=== PATIENT | female | born 1965 | race Two or more races ===

== ENCOUNTER 2016-08-10 12:43 | Inpatient (IN) | payer MEDICAID ==
[~2016-08-10] VITALS: Ht 154.9 cm; Wt 123.9 kg
[2016-08-10] MEDS ORDERED: SODIUM CHLORIDE 0.9% 1,000 ML IV ONE (13:30)
[2016-08-10] MEDS ORDERED: VANCOMYCIN 1GM/250ML D5W 250 ML IV ONE (13:30)
[2016-08-10] MEDS ORDERED: KETOROLAC TROMETH 30 MG/ML 1ML VIAL IV ONE (13:30)
[2016-08-10] MEDS ORDERED: CLINDAMYCIN 600MG IV 50 ML IV ONE (13:30)
[2016-08-10] MEDS ORDERED: CLINDAMYCIN 600 MG/4 ML VL IM ONE (13:30)
[2016-08-10 14:46] LABS: Basophils # (auto) 0.1 uL; Basophils % (auto) 1.4 % (0.0-2.0); Eosinophils # (auto) 0 uL; Eosinophils % (auto) 0.1 % (0.0-7.0); Hematocrit 41.6 % (36.0-46.0); Hemoglobin 13.8 g/dL (12.2-16.2); Lymphocytes # (auto) 2.4 uL; Lymphocytes % (auto) 43.8 % (10.0-50.0); Mean Corpuscular Hemoglobin 32.2 pg (28.0-32.0); Mean Corpuscular Hgb Conc. 33.2 g/dL (32.0-36.0); Mean Corpuscular Volume 96.9 fL (80.0-100.0); Mean Platelet Volume 10.1 fL (7.4-10.4); Monocytes # (auto) 0.5 uL; Monocytes % (auto) 8.4 % (0.0-12.0); Neutrophils # (auto) 2.5 uL; Neutrophils % (auto) 46.3 % (37.0-80.0); Platelet Count (auto) 255 10^3/uL (140-450); White Blood Cell 5.4 10^3/uL (4.4-10.8)
[2016-08-10 14:56] LABS: BUN/Creatinine Ratio 18.4; Bilirubin, Total 0.3 mg/dL (0.2-1.0); Calcium 9.2 mg/dL (8.5-10.1); Potassium 3.6 mmol/L (3.5-5.1); Total Protein 7.7 g/dL (6.4-8.2)
[2016-08-10] MEDS ORDERED: MORPHINE SULF INJ 2 MG/ML SYRINGE 1ML IV PRN (15:45)
[2016-08-10] MEDS ORDERED: ONDANSETRON HCL 4 MG/2 ML VIAL IV PRN (15:45)
[2016-08-10] MEDS ORDERED: DEXTROSE (50%) 50ML SYRG IV PRN (15:45)
[2016-08-10] MEDS ORDERED: cefTRIAXone 1GM/50ML D5W 50 ML IV ONE (16:00)
[2016-08-10] MEDS: ACCU-CHEK COMFORT CURVE STRIP VI SCH ×2 (16:41→22:10)
[2016-08-10] MEDS: InsuLIN REG 1unit/0.01ml Soln (100units/ml) SC SCH ×2 (16:41→22:09)
[2016-08-10] MEDS ORDERED: POTASSIUM CHL 20 Meq TABLET PO ONE (16:45)
[2016-08-10] MEDS ORDERED: FUROSEMIDE 40 MG TAB PO ONE (16:45)
[2016-08-10] MEDS ORDERED: LOSARTAN POTASSIUM 50 MG TAB PO ONE (16:45)
[2016-08-10] MEDS ORDERED: LEVOTHYROXINE SODIUM 50 MCG TAB PO ONE (16:45)
[2016-08-10] MEDS: ALBUTEROL SULF 2.5 MG/0.5ML(0.5%) NEB SOLN NEB PRN (18:37)
[2016-08-10] MEDS: BUDESONIDE (INHALATION) 0.5 MG/2 ML NEB NEB SCH (18:38)
[2016-08-10 19:40] LABS: Urine Bilirubin Negative (Negative); Urine Blood Negative /uL (Negative); Urine Color Yellow (Yellow); Urine Glucose Normal (Normal); Urine Ketone Negative (Negative); Urine Mucus FEW (None Seen); Urine Nitrite Negative (Negative); Urine RBC 1 /hpf (0 - 4); Urine Squamous Epithelial Cell FEW /hpf (<5); Urine Urobilinogen Normal (Negative)
[2016-08-10 20:00] VITALS: BP 153/89
[2016-08-10] MEDS ORDERED: LIDO1PAD55 TOP (20:27)
[2016-08-10] MEDS ORDERED: ASP81EC PO (20:27)
[2016-08-10] MEDS ORDERED: ALBU0.084 INH (20:27)
[2016-08-10] MEDS ORDERED: HYDR50TA69 PO (20:27)
[2016-08-10] MEDS ORDERED: OME20T PO (20:27)
[2016-08-10] MEDS ORDERED: FURO40TA4 PO (20:27)
[2016-08-10] MEDS ORDERED: LEVO50TA7 PO (20:27)
[2016-08-10] MEDS ORDERED: BECL80AE9 IN (20:27)
[2016-08-10] MEDS ORDERED: CYCL1TAB18 PO (20:27)
[2016-08-10] MEDS ORDERED: LOSA50TA6 PO (20:27)
[2016-08-10] MEDS ORDERED: GABA800T97 PO (20:27)
[2016-08-10] MEDS ORDERED: ALUMCHW2 PO (20:27)
[2016-08-10] MEDS ORDERED: CHOL200035 PO (20:27)
[2016-08-10] MEDS ORDERED: HCTZ25T PO (20:27)
[2016-08-10] MEDS ORDERED: MONT10TA34 PO (20:27)
[2016-08-10] MEDS ORDERED: TRAM50TA2 PO (20:27)
[2016-08-10] MEDS ORDERED: GLIP-115 PO (20:27)
[2016-08-10] MEDS ORDERED: ALBU18 INH (20:27)
[2016-08-10] MEDS ORDERED: DICL1GEL35 TOP (20:27)
[2016-08-10 20:28] VITALS: BP 145/86
[2016-08-10] MEDS ORDERED: POTA10TA51 PO (20:28)
[2016-08-10] MEDS ORDERED: LORA-154 PO (20:29)
[2016-08-10] MEDS ORDERED: SIMV-13 PO (20:29)
[2016-08-10] MEDS ORDERED: POTA8TAB15 PO (20:29)
[2016-08-10] MEDS: CLINDAMYCIN 600MG IV 50 ML IV SCH (21:58)
[2016-08-10] MEDS: HYDROcodone-ACET 5/325MG TAB PO PRN (22:10)
[2016-08-10 22:55] VITALS: BP 153/89
[2016-08-11] VITALS (7 sets, daily range): BP systolic 107–143; BP diastolic 62–77
[2016-08-11] MEDS: ACCU-CHEK COMFORT CURVE STRIP VI SCH ×4 (05:54→22:04)
[2016-08-11] MEDS: InsuLIN REG 1unit/0.01ml Soln (100units/ml) SC SCH ×4 (05:55→22:00)
[2016-08-11] MEDS: HYDROcodone-ACET 5/325MG TAB PO PRN (06:02)
[2016-08-11] MEDS: LEVOTHYROXINE SODIUM 50 MCG TAB PO SCH (06:02)
[2016-08-11] MEDS: CLINDAMYCIN 600MG IV 50 ML IV SCH ×3 (06:02→22:04)
[2016-08-11 06:52] LABS: Basophils # (auto) 0 uL; Basophils % (auto) 0.4 % (0.0-2.0); Eosinophils # (auto) 0 uL; Hematocrit 37.4 % (36.0-46.0); Hemoglobin 12.6 g/dL (12.2-16.2); Lymphocytes # (auto) 1.1 uL; Lymphocytes % (auto) 17.9 % (10.0-50.0); Mean Corpuscular Hemoglobin 32.5 pg (28.0-32.0); Mean Corpuscular Hgb Conc. 33.7 g/dL (32.0-36.0); Mean Corpuscular Volume 96.4 fL (80.0-100.0); Mean Platelet Volume 9.9 fL (7.4-10.4); Monocytes # (auto) 0.4 uL; Monocytes % (auto) 6.2 % (0.0-12.0); Neutrophils # (auto) 4.8 uL; Neutrophils % (auto) 75.5 % (37.0-80.0); Platelet Count (auto) 219 10^3/uL (140-450); Red Cell Distribution Width 13.8 % (11.6-16.0); White Blood Cell 6.3 10^3/uL (4.4-10.8)
[2016-08-11 06:56] LABS: Potassium 4.5 mmol/L (3.5-5.1)
[2016-08-11 07:01] LABS: BUN/Creatinine Ratio 23.4; Calcium 8.3 mg/dL (8.5-10.1)
[2016-08-11] MEDS: cefTRIAXone 1GM/50ML D5W 50 ML IV SCH (09:02)
[2016-08-11] MEDS: BUDESONIDE (INHALATION) 0.5 MG/2 ML NEB NEB SCH ×2 (10:03→18:59)
[2016-08-11] MEDS: FUROSEMIDE 40 MG TAB PO SCH (11:26)
[2016-08-11] MEDS: FLORASTOR (S. BOULARDII) 250 MG CAP PO SCH (11:26)
[2016-08-11] MEDS: POTASSIUM CHL 20 Meq TABLET PO SCH (11:26)
[2016-08-11] MEDS: LOSARTAN POTASSIUM 50 MG TAB PO SCH (11:27)
[2016-08-11] MEDS: traMADol HCL 50 MG TAB PO PRN (18:19)
[2016-08-12 05:00] VITALS: BP 138/72
[2016-08-12] MEDS: ACCU-CHEK COMFORT CURVE STRIP VI SCH ×4 (06:16→22:00)
[2016-08-12] MEDS: CLINDAMYCIN 600MG IV 50 ML IV SCH ×3 (06:16→22:52)
[2016-08-12] MEDS: InsuLIN REG 1unit/0.01ml Soln (100units/ml) SC SCH ×4 (06:16→22:00)
[2016-08-12] MEDS: LEVOTHYROXINE SODIUM 50 MCG TAB PO SCH (06:45)
[2016-08-12 09:00] VITALS: BP 104/64
[2016-08-12] MEDS: POTASSIUM CHL 20 Meq TABLET PO SCH (09:36)
[2016-08-12] MEDS: FLORASTOR (S. BOULARDII) 250 MG CAP PO SCH (09:36)
[2016-08-12] MEDS: cefTRIAXone 1GM/50ML D5W 50 ML IV SCH (09:36)
[2016-08-12] MEDS: LOSARTAN POTASSIUM 50 MG TAB PO SCH (09:39)
[2016-08-12] MEDS: FUROSEMIDE 40 MG TAB PO SCH (09:39)
[2016-08-12] MEDS: BUDESONIDE (INHALATION) 0.5 MG/2 ML NEB NEB SCH ×2 (10:39→18:17)
[2016-08-12] MEDS: traMADol HCL 50 MG TAB PO PRN (12:11)
[2016-08-12 13:00] VITALS: BP 126/68
[2016-08-12 17:00] VITALS: BP 151/95
[2016-08-12] MEDS ORDERED: GABAPENTIN 400 MG CAP PO SCH (18:00)
[2016-08-12] MEDS: ALBUTEROL SULF 2.5 MG/0.5ML(0.5%) NEB SOLN NEB PRN (18:17)
[2016-08-12 22:00] VITALS: BP 144/92
[2016-08-13 05:00] VITALS: BP 158/90
[2016-08-13] MEDS: LEVOTHYROXINE SODIUM 50 MCG TAB PO SCH (05:29)
[2016-08-13] MEDS: InsuLIN REG 1unit/0.01ml Soln (100units/ml) SC SCH ×2 (05:29→11:30)
[2016-08-13] MEDS: ACCU-CHEK COMFORT CURVE STRIP VI SCH ×2 (05:30→12:05)
[2016-08-13] MEDS: CLINDAMYCIN 600MG IV 50 ML IV SCH (05:30)
[2016-08-13] MEDS: BUDESONIDE (INHALATION) 0.5 MG/2 ML NEB NEB SCH (05:59)
[2016-08-13 09:00] VITALS: BP 117/73
[2016-08-13] MEDS: FLORASTOR (S. BOULARDII) 250 MG CAP PO SCH (09:25)
[2016-08-13] MEDS: cefTRIAXone 1GM/50ML D5W 50 ML IV SCH (09:25)
[2016-08-13] MEDS: LOSARTAN POTASSIUM 50 MG TAB PO SCH (09:26)
[2016-08-13] MEDS: POTASSIUM CHL 20 Meq TABLET PO SCH (09:26)
[2016-08-13] MEDS: FUROSEMIDE 40 MG TAB PO SCH (09:27)
[2016-08-13] MEDS ORDERED: ASCORBIC ACID 500 MG TAB PO SCH (10:00)
[2016-08-13] MEDS ORDERED: MULTIPLE VITAMINS W/ MINERALS TAB PO SCH (10:00)
[2016-08-13 13:00] VITALS: BP 145/84
== END 2016-08-13 12:45 | disposition still patient (30) | DRG 383 ==
LOC: ER 12:43 → OVERFLOW 12:44 → CENTRAL 19:31
PROVIDERS: ADMIT Internal Medicine; ATTEND Internal Medicine
DX: L03.116 Cellulitis of left lower limb (principal); L97.929 Non-pressure chronic ulcer of unspecified part of left lower leg with unspecified severity; I10 Essential (primary) hypertension; E66.01 Morbid (severe) obesity due to excess calories; E11.9 Type 2 diabetes mellitus without complications; E03.9 Hypothyroidism, unspecified; E78.5 Hyperlipidemia, unspecified; J45.909 Unspecified asthma, uncomplicated; M19.90 Unspecified osteoarthritis, unspecified site; E78.00 Pure hypercholesterolemia, unspecified; Z68.43 Body mass index [BMI] 50.0-59.9, adult
CPT/HCPCS: 36415; 73590; 80048; 80053; 81001; 82962; 83036; 84443; 85025; 87040; 87077; 87186; 87205; 87493; 94640; 96365; 96367; 96368; 96372; 96375; J0696; J1815; J1885; J3490

== ENCOUNTER 2016-08-31 08:08 | Emergency (ER) | payer MEDICAID ==
[~2016-08-31] VITALS: Ht 154.9 cm; Wt 98.4 kg
[~2016-08-31 08:08] MED LIST: ALBU0.084 INH; ALBU18 INH; ALUMCHW2 PO; ASP81EC PO; BECL80AE9 IN; CHOL200035 PO; CYCL1TAB18 PO; DICL1GEL35 TOP; FURO40TA4 PO; GABA800T97 PO; GLIP-115 PO; HCTZ25T PO; HYDR50TA69 PO; LEVO50TA7 PO; LIDO1PAD55 TOP; LORA-154 PO; LOSA50TA6 PO; MONT10TA34 PO; OME20T PO; POTA8TAB15 PO; SIMV-13 PO; TRAM50TA2 PO
[2016-08-31 08:40] VITALS: BP 131/86
[2016-08-31] MEDS ORDERED: diphenhdrAMINE HCL 50 MG/1 ML VL IM ONE (09:00)
[2016-08-31] MEDS ORDERED: methylPREDNISolone SOD SUCC 125 MG/2 ML VL IM ONE (09:00)
== END 2016-08-31 09:32 | disposition home or self-care (01) ==
LOC: ER 08:10
DX: L50.9 Urticaria, unspecified (principal); T36.1X5A Adverse effect of cephalosporins and other beta-lactam antibiotics, initial encounter; E11.9 Type 2 diabetes mellitus without complications; I10 Essential (primary) hypertension; Y92.89 Other specified places as the place of occurrence of the external cause
CPT/HCPCS: 96372; 99284; J1200; J2930

== ENCOUNTER 2019-08-28 14:11 | Inpatient (IN) | payer MEDICAID ==
[~2019-08-28] VITALS: Ht 160 cm; Wt 140.4 kg
[~2019-08-28 14:11] MED LIST changes: -ASP81EC PO; +ASPI-394 PO; +CYCL10TA6 PO; -CYCL1TAB18 PO; -DICL1GEL35 TOP; +DICL1GEL50 TOP; -GLIP-115 PO; +GLIP5TAB12 PO; +LOSA-69 PO; -LOSA50TA6 PO
[2019-08-28] MEDS ORDERED: SODIUM CHLORIDE 0.9% 1,000 ML IV ONE ×2 (14:24)
[2019-08-28] MEDS ORDERED: PIPERACILLIN-TAZOB 3.375GM 100 ML IV ONE (14:30)
[2019-08-28 16:02] LABS: Albumin 3.9 g/dL (3.4-5.0); Anion Gap 5 (5-15); Blood Urea Nitrogen 18 mg/dL (7-18); Calcium 8.7 mg/dL (8.5-10.1); Carbon Dioxide 28 mmol/L (21-32); Chloride 105 mmol/L (98-107); Glucose 110 mg/dL (74-106); Sodium 138 mmol/L (136-145)
[2019-08-28 16:04] LABS: Basophils # (auto) 0.1 10 ^3/uL (0-0.2); Basophils % (auto) 1.5 % (0.0-2.0); Eosinophils # (auto) 0.1 10 ^3/uL (0-0.8); Eosinophils % (auto) 3.1 % (0.0-7.0); Hematocrit 38.4 % (36.0-46.0); Hemoglobin 12.6 g/dL (12.2-16.2); Lymphocytes # (auto) 1.5 10 ^3/uL (0.4-5.4); Lymphocytes % (auto) 31.8 % (10.0-50.0); Mean Corpuscular Hemoglobin 31.4 pg (28.0-32.0); Mean Corpuscular Hgb Conc. 32.8 g/dL (32.0-36.0); Monocytes # (auto) 0.4 10 ^3/uL (0-1.3); Monocytes % (auto) 9.1 % (0.0-12.0); Neutrophils # (auto) 2.6 10 ^3/uL (1.6-8.6); Neutrophils % (auto) 54.5 % (37.0-80.0); Platelet Count (auto) 202 10^3/uL (140-450); Red Blood Cells 4.01 10^6/uL (4.0-5.20); Red Cell Distribution Width 13.4 % (11.8-14.3); White Blood Cell 4.8 10^3/uL (4.4-10.8)
[2019-08-28 16:06] LABS: INR 1.01 (0.9-1.15); Partial Thromboplastin Time 27.6 sec (23.64-32.05)
[2019-08-28 16:09] LABS: Alanine Aminotransferase 19 U/L (13-56); Alkaline Phosphatase 107 U/L (45-117); Aspartate Aminotransferase 13 U/L (15-37); BUN/Creatinine Ratio 27.3; Bilirubin, Total 0.4 mg/dL (0.2-1.0); GFR African American 119 mL/min; GFR Non-African American 98 mL/min; Total Protein 7.1 g/dL (6.4-8.2)
[2019-08-28] MEDS ORDERED: SODIUM CHLORIDE 0.9% 1,000 ML IV SCH (18:38)
[2019-08-28] MEDS ORDERED: ALUM & MAG HYDROX-SIMETH LIQ(MAALOX) 30 ML PO PRN (18:45)
[2019-08-28] MEDS ORDERED: NITROGLYCERIN 0.4 MG SL TAB SL PRN (18:45)
[2019-08-28] MEDS ORDERED: MORPHINE SULF INJ 2 MG/ML SYRINGE 1ML IV PRN ×2 (18:45)
[2019-08-28] MEDS ORDERED: HYDROcodone-ACET 5/325MG TAB PO PRN (18:45)
[2019-08-28] MEDS ORDERED: VANCOMYCIN PER PHARMACY 0 MG IV SCH (18:45)
[2019-08-28] MEDS ORDERED: ONDANSETRON HCL 4 MG/2 ML VIAL IV PRN (18:45)
[2019-08-28] MEDS ORDERED: DOCUSATE SOD 100 MG CAP PO PRN (18:45)
--- NOTE | 2019-08-28 19:55 | NUR ---
Telemetry admit from ER CHHAYA ROSENBERG admitted to Telemetry unit. Patient oriented to Sandy Wilkerson, primary RN, unit, room, bed, and unit policies regarding patient care and visiting hours. Patient now on continuous telemetry monitoring, tele box # 50 and telemetry reading on arrival to unit is Sinus rhythm 74. Patient placed on bedside oxygen, weighed by bedscale and encouraged to call if they need something. All questions and concerns addressed, patient verbalized understanding. Note:
[2019-08-28 20:09] LABS: Cholesterol 128 mg/dL (< 200)
[2019-08-28 20:16] LABS: HDL Cholesterol 37 mg/dL (40-59); LDL Cholesterol 78 mg/dL (< 100); Triglycerides 136 mg/dL (< 150)
[2019-08-28 20:40] VITALS: BP 146/85
[2019-08-28] MEDS ORDERED: VANCOMYCIN 1GM/250ML 250 ML IV SCH (21:00)
[2019-08-28] MEDS: LORazepam 0.5 MG TAB PO PRN (21:57)
[2019-08-28 22:00] VITALS: BP 118/71
[2019-08-28] MEDS ORDERED: POTASSIUM CHL 20MEQ/100ML 100 ML IV ONE (22:45)
[2019-08-28] MEDS ORDERED: SOD CHL 0.9%/ KCL 40MEQ 1,000 ML IV SCH (22:45)
[2019-08-28] MEDS ORDERED: FUROSEMIDE 20 MG/2 ML VIAL IV ONE (22:45)
[2019-08-28] MEDS ORDERED: HCTZ 25 MG TAB PO ONE (23:00)
[2019-08-28] MEDS ORDERED: hydrALAZINE HCL 20 MG/ML VL IV PRN (23:00)
[2019-08-28] MEDS ORDERED: DEXTROSE (50%) 50ML SYRG IV PRN (23:00)
[2019-08-28 23:30] LABS: Urine Amorphous Crystal FEW /hpf (None Seen); Urine Bacteria FEW /hpf (None Seen); Urine Blood Negative /uL (Negative); Urine Specific Gravity 1.023 (1.001-1.035); Urine WBC 3 /hpf (0 - 5)
[2019-08-28] MEDS ORDERED: LOSARTAN POTASSIUM 25 MG TAB PO ONE (23:30)
[2019-08-28 23:36] LABS: Alcohol, Urine < 3.0 mg/dL (0-10); Amphetamine Screen, Urine NEGATIVE (NEGATIVE); Barbiturate Scree,Urine NEGATIVE (NEGATIVE); Benzodiazephine Screen, Urine NEGATIVE (NEGATIVE); Cannabinoid Screen, Urine NEGATIVE (NEGATIVE); Cocaine Screen, Urine NEGATIVE (NEGATIVE); Opiate Scree,Urine NEGATIVE (NEGATIVE); Phencyclidine Screen, Urine NEGATIVE (NEGATIVE)
[2019-08-29] VITALS (7 sets, daily range): BP systolic 123–146; BP diastolic 63–89
[2019-08-29] MEDS: PIPERACILLIN-TAZOB 3.375GM 100 ML IV SCH ×3 (00:11→11:30)
[2019-08-29] MEDS: IPRATROPIUM BROM 0.5 MG/2.5ML INH SOL NEB SCH ×6 (01:55→22:27)
[2019-08-29] MEDS: ALBUTEROL SULF 2.5 MG/0.5ML(0.5%) NEB SOLN NEB SCH ×6 (01:55→22:27)
[2019-08-29] MEDS ORDERED: FUROSEMIDE 20 MG/2 ML VIAL IV SCH (06:00)
[2019-08-29 06:04] LABS: Basophils # (auto) 0.1 10 ^3/uL (0-0.2); Basophils % (auto) 1.4 % (0.0-2.0); Eosinophils # (auto) 0.1 10 ^3/uL (0-0.8); Eosinophils % (auto) 2.5 % (0.0-7.0); Hematocrit 38.2 % (36.0-46.0); Hemoglobin 13.1 g/dL (12.2-16.2); Lymphocytes # (auto) 1.1 10 ^3/uL (0.4-5.4); Lymphocytes % (auto) 26.5 % (10.0-50.0); Mean Corpuscular Hemoglobin 32.5 pg (28.0-32.0); Mean Corpuscular Hgb Conc. 34.3 g/dL (32.0-36.0); Monocytes # (auto) 0.4 10 ^3/uL (0-1.3); Monocytes % (auto) 10.9 % (0.0-12.0); Neutrophils # (auto) 2.4 10 ^3/uL (1.6-8.6); Neutrophils % (auto) 58.7 % (37.0-80.0); Platelet Count (auto) 192 10^3/uL (140-450); Red Blood Cells 4.02 10^6/uL (4.0-5.20); Red Cell Distribution Width 13.3 % (11.8-14.3); White Blood Cell 4.1 10^3/uL (4.4-10.8)
[2019-08-29 06:24] LABS: INR 1.01 (0.9-1.15); Partial Thromboplastin Time 26.4 sec (23.64-32.05)
[2019-08-29 06:29] LABS: Potassium 3.1 mmol/L (3.5-5.1)
[2019-08-29] MEDS: LEVOTHYROXINE SODIUM 50 MCG TAB PO SCH (06:33)
[2019-08-29] MEDS: ACCU-CHEK COMFORT CURVE STRIP VI SCH ×4 (06:33→21:57)
[2019-08-29] MEDS: InsuLIN REG 1unit/0.01ml Soln (100units/ml) SC SCH ×3 (06:34→17:17)
[2019-08-29 06:42] LABS: Albumin 3.6 g/dL (3.4-5.0); BUN/Creatinine Ratio 19.4; Bilirubin, Total 0.5 mg/dL (0.2-1.0); Calcium 8.8 mg/dL (8.5-10.1); Magnesium 1.9 mg/dL (1.6-2.6); Phosphorus 4.3 mg/dL (2.5-4.90); Total Protein 6.7 g/dL (6.4-8.2)
--- NOTE | 2019-08-29 07:30 | NUR ---
Opening Shift Note Assumed care of patient, awake and alert. No S/S of distress/SOB or pain. Bed in lowest and locked position with side rails up x2 and call light in reach. Instructed on POC and to call for assist PRN, will continue to monitor for changes Q1hr and PRN.
[2019-08-29] MEDS ORDERED: methylPREDNISolone SOD SUCC 40 MG/ML VL IV SCH (10:00)
[2019-08-29] MEDS ORDERED: FAMOTIDINE (10MG/ML) 2ML VL IV SCH (10:00)
--- NOTE | 2019-08-29 11:13 | NUR ---
WOUND CARE NOTE: Wound care in to see patient per wound care request regarding "left lower extremity multi open wounds and swelling" that are noted present on admission. Bedside nurse took photograph of patient's skin issue upon admission for reference. Patient is 54 years old female with admitting diagnosis of Bilateral lower extremity Cellulitis. Patient is resting in bed in Rm. 278B. She's awake,alert and oriented. Patient is ambulatory, self turning and repositioning. Her Sourav score is 21. Patient is in no stated pain at this time. Noted patient's BLE has edema and erythema. Dry skin and intact scars noted to her Rt lower leg. There's tiny, dry, scabbed wound (0.8x0.8cm) noted to her Rt distal limon. Patient's L limon has multi ulceration measuring from proximal to distal : 1x0.7cm, 0.6x0.6cm and 1.5x1.8cm. Wounds are red/pale pink with red wilfredo wound, no drainage/odor noted. Patient reported that she has had the LLE wounds for two weeks. Patient's wound care education provided,verbalized understanding. Cleansed patient's LLE wounds with mild soap and water,patted dry, applied Thera honey gel to multi wounds and covered with abd pad, secured with stockinette. Patient requested dressing to her dry scabbed wound to Rt distal limon. Cleansed and covered with dry dressing. Patient tolerated well. Patient's toe nails noted thick, long and yellow. Patient educated on the needs to see mounted police officer for her toe nails. RECOMMENDATION: Nursing to continue with EOD/PRN dressing change to LLE wounds per MD order, elevate edematous extremities on pillows, redistribute pressure points with pillows,continue monitoring by wound care while patient is hospitalized. Addendum: 08/29/19 at 1335 by Selena Gray RN Amended: Links added.
[2019-08-29] MEDS: CITALOPRAM HYDROBR 20 MG TAB PO SCH (11:32)
[2019-08-29] MEDS: ASPirin 81 mg TAB PO SCH (11:32)
[2019-08-29] MEDS: GABAPENTIN 300 MG CAP PO SCH ×2 (11:34→21:56)
[2019-08-29] MEDS: POTASSIUM CHL 20 Meq TABLET PO SCH (11:34)
[2019-08-29] MEDS: CHOLECALCIFEROL (VITD3) 1,000UNIT=25mCg TAB PO SCH (11:34)
[2019-08-29] MEDS: ENOXAPARIN SOD 40 MG/0.4 ML SYRINGE SC SCH (11:35)
[2019-08-29] MEDS ORDERED: POTASSIUM CHL 20 Meq TABLET PO ONE (12:30)
[2019-08-29] MEDS: LOSARTAN POTASSIUM 50 MG TAB PO SCH (12:42)
[2019-08-29] MEDS: HCTZ 25 MG TAB PO SCH (12:43)
--- NOTE | 2019-08-29 13:38 | NUR ---
COVID-19 SWAB WALKED TO LAB BY PRIMARY RN.
[2019-08-29] MEDS: cefTRIAXone 1GM/50ML D5W 50 ML IV SCH (13:57)
[2019-08-29] MEDS ORDERED: CHOL200035 PO ×2 (15:50→15:51)
[2019-08-29] MEDS ORDERED: FURO20TA3 PO (15:50)
[2019-08-29] MEDS ORDERED: ATOR40TA52 PO (15:50)
[2019-08-29] MEDS ORDERED: LEVO50TA7 PO (15:50)
[2019-08-29] MEDS ORDERED: POTA8TAB2 PO (15:50)
--- NOTE | 2019-08-29 19:35 | NUR ---
Opening Shift Note Assumed care of patient, awake and alert. No S/S of distress/SOB or pain. Instructed on POC and to call for assist PRN, will continue to monitor for changes Q1hr and PRN.
[2019-08-29] MEDS: LORazepam 0.5 MG TAB PO PRN (21:57)
[2019-08-29] MEDS ORDERED: ATORVASTATIN 20 MG TAB PO SCH (22:00)
[2019-08-29] MEDS ORDERED: InsuLIN REG 1unit/0.01ml Soln (100units/ml) SC SCH (22:00)
[2019-08-29] MEDS ORDERED: MONTELUKAST SODIUM 10 MG TAB PO SCH (22:00)
[2019-08-29] MEDS: CLINDAMYCIN 600MG IV 50 ML IV SCH (22:50)
[2019-08-30] MEDS: IPRATROPIUM BROM 0.5 MG/2.5ML INH SOL NEB SCH ×4 (02:33→14:36)
[2019-08-30] MEDS: ALBUTEROL SULF 2.5 MG/0.5ML(0.5%) NEB SOLN NEB SCH ×4 (02:33→14:36)
--- NOTE | 2019-08-30 02:33 | NUR ---
Respiratory note: SCHEDULED MED NEB TX NOT GIVEN. PT WAS ASLEEP, NO RESP DISTRESS NOTED. PT DID NOT WANT TX AT THIS TIME.
[2019-08-30 06:00] VITALS: BP 138/96
[2019-08-30] MEDS: CLINDAMYCIN 600MG IV 50 ML IV SCH ×2 (06:51→14:00)
[2019-08-30] MEDS: LEVOTHYROXINE SODIUM 50 MCG TAB PO SCH (06:52)
[2019-08-30] MEDS: ACCU-CHEK COMFORT CURVE STRIP VI SCH ×2 (06:52→11:30)
[2019-08-30] MEDS: InsuLIN REG 1unit/0.01ml Soln (100units/ml) SC SCH ×2 (07:05→11:30)
[2019-08-30 07:25] LABS: Potassium 3.7 mmol/L (3.5-5.1)
--- NOTE | 2019-08-30 07:30 | NUR ---
Opening Shift Note Assuming care of patient at this time. Patient is awake and alert. Patient denies pain. Patient shows no signs or symptoms of distress or shortness of breath. Bed is locked and lowered with side rails up x2. Instructed patient on the plan of care for today and to call for assistance as needed. Call light within reach. Will continue to round hourly and as needed.
[2019-08-30 07:33] LABS: BUN/Creatinine Ratio 15.7; Calcium 9.6 mg/dL (8.5-10.1)
[2019-08-30 09:00] VITALS: BP 130/68
[2019-08-30] MEDS: ASPirin 81 mg TAB PO SCH (10:11)
[2019-08-30] MEDS: GABAPENTIN 300 MG CAP PO SCH (10:11)
[2019-08-30] MEDS: CITALOPRAM HYDROBR 20 MG TAB PO SCH (10:11)
[2019-08-30] MEDS: HCTZ 25 MG TAB PO SCH (10:12)
[2019-08-30] MEDS: CHOLECALCIFEROL (VITD3) 1,000UNIT=25mCg TAB PO SCH (10:12)
[2019-08-30] MEDS: POTASSIUM CHL 20 Meq TABLET PO SCH (10:13)
[2019-08-30] MEDS: LOSARTAN POTASSIUM 50 MG TAB PO SCH (10:13)
[2019-08-30] MEDS: cefTRIAXone 1GM/50ML D5W 50 ML IV SCH (10:13)
[2019-08-30] MEDS ORDERED: LEV50T PO (10:14)
[2019-08-30] MEDS: ENOXAPARIN SOD 40 MG/0.4 ML SYRINGE SC SCH (10:14)
[2019-08-30] MEDS ORDERED: CLIN300C8 PO (10:14)
[2019-08-30] MEDS ORDERED: IPR002IS NEB (10:14)
[2019-08-30] MEDS ORDERED: POTA-220 PO (10:15)
[2019-08-30 12:22] VITALS: BP 130/68
--- NOTE | 2019-08-30 12:30 | NUR ---
Wound Photos/Care Wound care done and photos taken at this time. Gave patient supplies to do wound care at home per MD orders. Patient given abdominal pads, honey, and stockinettes in order to perform wound care at home.
[2019-08-30 13:00] VITALS: BP 138/94
--- NOTE | 2019-08-30 14:30 | NUR ---
Discharge Discharge instructions given as ordered. Encourage to follow up with PMD as instructed. All questions and concerns addressed. Patient verbalized understanding. Medication reconciliation form completed and copy given to patient. IV removed with catheter intact, pressure dressing applied. Patient taken to vehicle via wheelchair with all personal belongings, accompanied by staff and family member. No distress noted at time of departure.
== END 2019-08-30 14:30 | disposition home or self-care (01) | DRG 383 ==
LOC: ER 14:11 → EDUNIT# 14:11 → TELE 14:12 → TELE-WESTW 19:55 → WEST WING 08-29 12:27
PROVIDERS: ADMIT Hospitalist; ATTEND Internal Medicine
DX: L03.116 Cellulitis of left lower limb (principal); J44.1 Chronic obstructive pulmonary disease with (acute) exacerbation; J45.901 Unspecified asthma with (acute) exacerbation; E11.65 Type 2 diabetes mellitus with hyperglycemia; E11.40 Type 2 diabetes mellitus with diabetic neuropathy, unspecified; E66.01 Morbid (severe) obesity due to excess calories; I10 Essential (primary) hypertension; L03.115 Cellulitis of right lower limb; I16.9 Hypertensive crisis, unspecified; K21.9 Gastro-esophageal reflux disease without esophagitis; K29.70 Gastritis, unspecified, without bleeding; Z68.43 Body mass index [BMI] 50.0-59.9, adult; E03.9 Hypothyroidism, unspecified; Z20.828 Contact with and (suspected) exposure to other viral communicable diseases; E78.5 Hyperlipidemia, unspecified; E87.6 Hypokalemia; F32.9 Major depressive disorder, single episode, unspecified; F41.9 Anxiety disorder, unspecified; G47.30 Sleep apnea, unspecified; M19.90 Unspecified osteoarthritis, unspecified site; Z79.82 Long term (current) use of aspirin; Z79.84 Long term (current) use of oral hypoglycemic drugs; Z79.899 Other long term (current) drug therapy; Z82.49 Family history of ischemic heart disease and other diseases of the circulatory system; Z83.3 Family history of diabetes mellitus
CPT/HCPCS: 36415; 71045; 80048; 80053; 80061; 80307; 81001; 82962; 83036; 83605; 83735; 83880; 84100; 84484; 85025; 85610; 85730; 87040; 87086; 93306; 93970; 94640; 96365; G0378; J0696; J1815; J2543; J3480; J3490